=== PATIENT | female | born 1990 | race American Indian/Alaskan Native ===

== ENCOUNTER 2019-07-12 20:10 | Emergency (ER) | payer SELFPAY ==
--- NOTE | 2019-07-12 23:14 | XRay Report ---
CHEST 2 VIEWS INDICATION / CLINICAL INFORMATION: cp. COMPARISON: None available. FINDINGS: SUPPORT DEVICES: None. HEART / MEDIASTINUM: No significant abnormality. LUNGS / PLEURA: No significant pulmonary or pleural abnormality. No pneumothorax. ADDITIONAL FINDINGS: No significant additional findings. IMPRESSION: 1. No acute findings. Signer Name: Imer Holt MD Signed: 07/12/2019 11:09 PM Workstation Name: [id number]
[2019-07-12 23:19] VITALS: BP 108/43
== END 2019-07-13 02:10 | disposition left against medical advice (07) ==
LOC: ED 20:10
DX: R07.89 Other chest pain (principal); Z53.21 Procedure and treatment not carried out due to patient leaving prior to being seen by health care provider
CPT/HCPCS: 71046

== ENCOUNTER 2019-07-13 09:05 | Emergency (ER) | payer SELFPAY ==
[2019-07-13 11:27] LABS: Basophils % (Auto) 0.5 % (0.0-1.8); Eosinophils # (Auto) 0.1 K/mm3 (0.0-0.4); Eosinophils % (Auto) 2.7 % (0.0-4.3); Hematocrit 34.4 % (30.3-42.9); Hemoglobin 11.1 gm/dl (10.1-14.3); Lymphocytes # (Auto) 2.2 K/mm3 (1.2-5.4); Lymphocytes % (Auto) 45.6 % (13.4-35.0); Mean Corpuscular HGB Conc 32 % (30-34); Mean Corpuscular Volume 84 fl (79-97); Monocytes # (Auto) 0.3 K/mm3 (0.0-0.8); Monocytes % (Auto) 5.9 % (0.0-7.3); Platelet Count 174 K/mm3 (140-440); Red Blood Count 4.11 M/mm3 (3.65-5.03)
[2019-07-13 12:34] LABS: BUN/Creatinine Ratio 10; Blood Urea Nitrogen 5 mg/dL (7-17); Calcium 8.7 mg/dL (8.4-10.2); Hemolysis Index 4
--- NOTE | 2019-07-13 12:51 | XRay Report ---
CHEST 1 VIEW INDICATION: cp. COMPARISON: None FINDINGS: Support devices: None. Heart: Within normal limits. Lungs/Pleura: No acute air space or interstitial disease. Additional findings: None. IMPRESSION: 1. No acute findings. Signer Name: Kareem Hernandez MD Signed: 07/13/2019 12:47 PM Workstation Name: [id number]
--- NOTE | 2019-07-13 13:12 | Emergency Department Report ---
ED General Adult HPI - General Chief complaint: Chest Pain Stated complaint: CHEST TIGHTNESS Time Seen by Provider: 07/13/19 10:16 Source: patient Mode of arrival: Ambulatory Limitations: No Limitations - History of Present Illness Initial comments: Patient is a 28-year-old [place] female who is presenting with sharp chest discomfort which started yesterday. Patient states occasionally she will have some shortness of breath with exertion and some tightness in the chest however is never been sharp in nature. Patient denies cough cold congestion. She does have some lightheadedness with standing. Patient states additionally she may be anemic secondary to having heavy menses. - Related Data Previous Rx's Medication Instructions Recorded Last Taken Type Ibuprofen [Motrin 600 MG tab] 600 mg PO Q8H PRN #10 tablet 07/13/19 Unknown Rx Allergies Allergy/AdvReac Type Severity Reaction Status Date / Time No Known Allergies Allergy Unverified 07/13/19 09:17 ED Review of Systems ROS: Stated complaint: CHEST TIGHTNESS Other details as noted in HPI Comment: All other systems reviewed and negative ED Past Medical Hx - Past Medical History Previous Medical History?: No - Surgical History Past Surgical History?: No - Social History Smoking Status: Never Smoker Substance Use Type: Alcohol - Medications Home Medications: Home Medications Medication Instructions Recorded Confirmed Last Taken Type Ibuprofen [Motrin 600 MG tab] 600 mg PO Q8H PRN #10 tablet 07/13/19 Unknown Rx ED Physical Exam - General Limitations: No Limitations General appearance: alert, in no apparent distress - Head Head exam: Present: atraumatic, normocephalic - Eye Eye exam: Present: normal appearance - ENT ENT exam: Present: mucous membranes moist - Neck Neck exam: Present: normal inspection - Respiratory Respiratory exam: Present: normal lung sounds bilaterally. Absent: respiratory distress, wheezes, rales, rhonchi, chest wall tenderness - Cardiovascular Cardiovascular Exam: Present: regular rate, normal rhythm, normal heart sounds. Absent: systolic murmur, diastolic murmur, rubs, gallop - GI/Abdominal GI/Abdominal exam: Present: soft, normal bowel sounds. Absent: distended, tenderness, guarding - Extremities Exam Extremities exam: Present: normal inspection - Back Exam Back exam: Present: normal inspection - Neurological Exam Neurological exam: Present: alert, oriented X3 - Psychiatric Psychiatric exam: Present: normal affect, normal mood - Skin Skin exam: Present: warm, dry, intact, normal color. Absent: rash ED Course Vital Signs 07/13/19 07/13/19 09:20 10:50 Temperature 98.4 F Pulse Rate 76 Pulse Rate [ 63 Lying] Respiratory 16 Rate Blood Pressure 104/50 Blood Pressure 118/45 [Lying] O2 Sat by Pulse 100 Oximetry ED Medical Decision Making - Lab Data Result diagrams: 07/13/19 10:57 07/13/19 10:57 Lab Results 07/13/19 07/13/19 Range/Units 10:57 10:57 WBC 4.9 (4.5-11.0) K/mm3 RBC 4.11 (3.65-5.03) M/mm3 Hgb 11.1 (10.1-14.3) gm/dl Hct 34.4 (30.3-42.9) % MCV 84 (79-97) fl MCH 27 L (28-32) pg MCHC 32 (30-34) % RDW 14.0 (13.2-15.2) % Plt Count 174 (140-440) K/mm3 Lymph % (Auto) 45.6 H (13.4-35.0) % [place] % (Auto) 5.9 (0.0-7.3) % Eos % (Auto) 2.7 (0.0-4.3) % Baso % (Auto) 0.5 (0.0-1.8) % Lymph # 2.2 (1.2-5.4) K/mm3 [place] # 0.3 (0.0-0.8) K/mm3 Eos # 0.1 (0.0-0.4) K/mm3 Baso # 0.0 (0.0-0.1) K/mm3 Seg Neutrophils % 45.3 (40.0-70.0) % Seg Neutrophils # 2.2 (1.8-7.7) K/mm3 Sodium 140 (137-145) mmol/L Potassium 4.1 (3.6-5.0) mmol/L Chloride 107.7 H (98-107) mmol/L Carbon Dioxide 18 L (22-30) mmol/L Anion Gap 18 mmol/L BUN 5 L (7-17) mg/dL Creatinine 0.5 L (0.7-1.2) mg/dL Estimated GFR > 60 ml/min BUN/Creatinine Ratio 10 % Glucose 90 (65-100) mg/dL Calcium 8.7 (8.4-10.2) mg/dL Vital Signs - 24 hr 07/13/19 07/13/19 09:20 10:50 Temperature 98.4 F Pulse Rate 76 Pulse Rate [ 63 Lying] Respiratory 16 Rate Blood Pressure 104/50 Blood Pressure 118/45 [Lying] O2 Sat by Pulse 100 Oximetry - EKG Data -: EKG Interpreted by Mn EKG shows normal: sinus rhythm, axis, intervals, QRS complexes, ST-T waves - EKG Data Interpretation: normal EKG - Radiology Data Radiology results: report reviewed (chest x-ray is within normal limits) - Medical Decision Making Patient is a 28-year-old female who states she has some sharp chest discomfort. Patient's vital signs within normal limits. She is not orthostatic. Chest no tachycardia and no hypoxia. Very unlikely patient has a pulmonary embolus. EKG ruled out pericarditis. There is no ischemic changes present. Chest x-ray shows no evidence of pneumonia or hypertrophic cardiomyopathy. Patient referred to cardiology for possible echocardiogram. Critical care attestation.: If time is entered above; I have spent that time in minutes in the direct care of this critically ill patient, excluding procedure time. ED Disposition Clinical Impression: Atypical chest pain Disposition: DC-01 TO HOME OR SELFCARE Is pt being admited?: No Does the pt Need Aspirin: No Condition: Stable Instructions: Chest Pain (ED) Referrals: SONIA MENCHACA MD [Staff Physician] - 3-5 Days Time of Disposition: 13:11
[2019-07-13 13:21] VITALS: BP 120/54
== END 2019-07-13 13:20 | disposition home or self-care (01) ==
LOC: ED 09:05
DX: R07.89 Other chest pain (principal); R06.02 Shortness of breath
CPT/HCPCS: 36415; 71045; 80048; 85025; 93005; 93010